=== PATIENT | male | born 1970 | race Caucasian/White ===

== ENCOUNTER 2019-09-30 15:24 | Emergency (ER) | payer OTHER, BC ==
[2019-09-30 15:42] VITALS: BP 176/95
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
[2019-09-30] MEDS ORDERED: ACETAMINOPHEN 325 MG TABLET PO ONE (16:06)
[2019-09-30] MEDS ORDERED: CYCLOBENZAPRINE HCL 10 MG TABLET PO ONE (16:06)
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
[2019-09-30 16:40] LABS: APPEARANCE,URINE CLEAR; BILIRUBIN,URINE NEGATIVE (NEGATIVE); COLOR,URINE YELLOW; GLUCOSE, URINE NEGATIVE (NEGATIVE); KETONES,URINE NEGATIVE (NEGATIVE); LEUKOCYTE ESTERASE,URINE NEGATIVE (NEGATIVE); NITRITE,URINE NEGATIVE (NEGATIVE); PROTEIN,URINE NEGATIVE (NEGATIVE); URINE SPECIFIC GRAVITY 1.012; UROBILINOGEN,URINE NEGATIVE mg/dL (<2.0)
== END 2019-09-30 16:56 | disposition home or self-care (01) ==
LOC: ER 15:24
DX: G44.89 Other headache syndrome (principal); M54.2 Cervicalgia; V87.7XXA Person injured in collision between other specified motor vehicles (traffic), initial encounter
CPT/HCPCS: 70450; 72125; 81001; 99284